=== PATIENT | male | born 1940 | race Caucasian/White ===

== ENCOUNTER → 2017-07-27 | Outpatient (CLI) | payer MEDICARE, OTHER ==
[~2017-07-27] MED LIST: ASPI81CH PO; ASPI81EC PO; ATOR10 PO; CALCAVITD PO; CHOL10002 PO; FISH1000 PO; GINKGO BILOBA; GLUC500 PO; Hair, Skin & N1 EACH PO; LOVA20 PO; OMEG1CAP30 PO
== END | disposition home or self-care (01) ==
LOC: LAB SHORT 09:42 → PLD 09:42
DX: D48.5 Neoplasm of uncertain behavior of skin (principal)
CPT/HCPCS: 88305

== ENCOUNTER → 2017-08-18 | Outpatient (CLI) | END | disposition home or self-care (01) ==

== ENCOUNTER 2018-01-13 10:55 | Day surgery (SDC) | payer MEDICARE, OTHER ==
[~2018-01-13] VITALS: Ht 175.3 cm; Wt 81.7 kg
[~2018-01-13 10:55] MED LIST changes: -CHOL10002 PO; -Hair, Skin & N1 EACH PO; -OMEG1CAP30 PO
[2018-01-13] MEDS ORDERED: Hair, Skin & N1 EACH PO (11:19)
[2018-01-13] MEDS ORDERED: OMEG1CAP30 PO (11:19)
[2018-01-13] MEDS ORDERED: CHOL10002 PO (11:20)
== END 2018-01-13 13:42 | disposition home or self-care (01) ==
LOC: ORSCSDS 10:55
PROVIDERS: Orthopaedic Surgery
PROC: 01N54ZZ Release Median Nerve, Percutaneous Endoscopic Approach (ICD-10-PCS; principal; 2018-01-13 12:00)
DX: G56.01 Carpal tunnel syndrome, right upper limb (principal); E78.00 Pure hypercholesterolemia, unspecified; Z87.891 Personal history of nicotine dependence; Z79.82 Long term (current) use of aspirin; Z79.899 Other long term (current) drug therapy
CPT/HCPCS: J0690; J2250; J3010; J7120

== ENCOUNTER → 2018-08-02 | Outpatient (CLI) | payer MEDICARE, OTHER ==
[~2018-08-02] MED LIST changes: +CHOL10002 PO; +Hair, Skin & N1 EACH PO; +OMEG1CAP30 PO
== END | disposition home or self-care (01) ==
LOC: LAB 13:33 → LAB SHORT 13:33 → PLD 13:33
DX: C44.319 Basal cell carcinoma of skin of other parts of face (principal)
CPT/HCPCS: 88305

== ENCOUNTER 2019-01-24 13:46 | Day surgery (SDC) | payer MEDICARE, OTHER ==
[~2019-01-24] VITALS: Ht 175.3 cm; Wt 80.7 kg
== END 2019-01-24 15:24 | disposition home or self-care (01) ==
LOC: ORSCSDS 13:46
PROVIDERS: Surgery
PROC: 0DBL8ZX Excision of Transverse Colon, Via Natural or Artificial Opening Endoscopic, Diagnostic (ICD-10-PCS; principal; 2019-01-24 15:15)
PROC: 0DBM8ZX Excision of Descending Colon, Via Natural or Artificial Opening Endoscopic, Diagnostic (ICD-10-PCS; principal; 2019-01-24 15:15)
DX: Z12.11 Encounter for screening for malignant neoplasm of colon (principal); Z80.0 Family history of malignant neoplasm of digestive organs; D12.3 Benign neoplasm of transverse colon; D12.4 Benign neoplasm of descending colon; K57.30 Diverticulosis of large intestine without perforation or abscess without bleeding; Z79.899 Other long term (current) drug therapy; Z79.82 Long term (current) use of aspirin; Z87.891 Personal history of nicotine dependence
CPT/HCPCS: 88305; J2704; J7120

== ENCOUNTER → 2021-01-08 | Outpatient (CLI) | payer MEDICARE, OTHER | END | disposition home or self-care (01) | LOC: LAB SHORT 12:00 → LAB 12:00 | DX: C44.319 Basal cell carcinoma of skin of other parts of face (principal); C44.719 Basal cell carcinoma of skin of left lower limb, including hip; L85.9 Epidermal thickening, unspecified; L57.8 Other skin changes due to chronic exposure to nonionizing radiation; B88.9 Infestation, unspecified | CPT/HCPCS: 88305; 88312 ==

== ENCOUNTER → 2021-02-13 | Outpatient (CLI) | payer MEDICARE, OTHER | LOC: LAB SHORT 13:53 → LAB 13:53 | DX: D48.5 Neoplasm of uncertain behavior of skin (principal); C44.719 Basal cell carcinoma of skin of left lower limb, including hip; C44.729 Squamous cell carcinoma of skin of left lower limb, including hip; L22 Diaper dermatitis; Z88.8 Allergy status to other drugs, medicaments and biological substances | CPT/HCPCS: 88305; 88312 ==

== ENCOUNTER → 2021-02-27 | Outpatient (CLI) | payer MEDICARE, OTHER | END | disposition home or self-care (01) | LOC: LAB SHORT 15:05 → LAB 15:05 | DX: L81.4 Other melanin hyperpigmentation (principal) | CPT/HCPCS: 88305 ==

== ENCOUNTER → 2021-06-04 | Outpatient (CLI) | payer MEDICARE, OTHER | LOC: LAB 15:19 → LAB SHORT 15:19 | DX: D48.5 Neoplasm of uncertain behavior of skin (principal); C44.319 Basal cell carcinoma of skin of other parts of face | CPT/HCPCS: 88305 ==

== ENCOUNTER → 2021-07-08 | Outpatient (CLI) | payer MEDICARE, OTHER | END | disposition home or self-care (01) | LOC: LAB SHORT 08:24 | DX: L82.1 Other seborrheic keratosis (principal); L90.5 Scar conditions and fibrosis of skin | CPT/HCPCS: 88305 ==

== ENCOUNTER → 2022-06-09 | Outpatient (CLI) | payer MEDICARE, OTHER | END | disposition home or self-care (01) | LOC: LAB SHORT 07:43 | DX: C44.319 Basal cell carcinoma of skin of other parts of face (principal); C44.41 Basal cell carcinoma of skin of scalp and neck | CPT/HCPCS: 88305 ==

== ENCOUNTER → 2022-12-09 | Outpatient (CLI) | payer MEDICARE, OTHER | END | disposition home or self-care (01) | LOC: LAB SHORT 11:21 → PLD 11:21 | DX: C44.219 Basal cell carcinoma of skin of left ear and external auricular canal (principal) | CPT/HCPCS: 88305 ==

== ENCOUNTER → 2023-06-09 | Outpatient (CLI) | payer MEDICARE | LOC: PLD 12:34 → LAB SHORT 12:34 | DX: C44.41 Basal cell carcinoma of skin of scalp and neck (principal) | CPT/HCPCS: 88305 ==

== ENCOUNTER 2024-06-16 07:25 | Day surgery (SDC) | payer MEDICARE ==
[~2024-06-16] VITALS: Ht 175.3 cm; Wt 79.7 kg
[~2024-06-16 07:25] MED LIST changes: +Lactated Ringer's 1,000 ML IV ONE; +propofoL 50 ML IV ONE
[2024-06-16] MEDS ORDERED: Lactated Ringer's 1,000 ML IV ONE (08:38)
[2024-06-16 09:28] VITALS: BP 102/68
== END 2024-06-16 09:31 | disposition home or self-care (01) ==
LOC: ORSCSDS 07:25
PROVIDERS: Surgery
PROC: 0DJD8ZZ Inspection of Lower Intestinal Tract, Via Natural or Artificial Opening Endoscopic (ICD-10-PCS; principal; 2024-06-16 08:45)
DX: Z12.11 Encounter for screening for malignant neoplasm of colon (principal); Z86.0100 Personal history of colon polyps, unspecified; Z80.0 Family history of malignant neoplasm of digestive organs; K57.30 Diverticulosis of large intestine without perforation or abscess without bleeding; E78.5 Hyperlipidemia, unspecified; Z79.82 Long term (current) use of aspirin; Z79.899 Other long term (current) drug therapy
CPT/HCPCS: J2704; J7120